=== PATIENT | female | born 1975 | race African-American/Black ===

== ENCOUNTER → 2016-08-22 | Outpatient (CLI) | payer OTHER ==
[~2016-08-22] MED LIST: FLEXERIL PO; HYDROCODON-ACE1 EAC7 PO; KETOPROFEN PO; MIDRIN CAPSULE1 CAP PO; VERAPAMIL HCL240 M1 PO; VICODIN 5/500 T1 TAB PO
--- NOTE | ~2016-08-22 | US6 ---
[facility] A Service of [facility] & [facility] RADIOLOGY TEXT RESULTS PATIENT: MARY JANE ESPINOZA LOCATION: [facility] : 73 UNIT #: [id number] AGE: [address]: BASIL IRIZARRY SEX: F ORDER DR: [id number] [facility] [address] [place], [place] [address] [id number] O MR#: [id number] Acc #: [id number] NAME: MARY JANE ESPINOZA : 1975 SEX: F STUDY DATE/TIME: 08/22/2016 14:14 UNIT: [facility] ROOM: STUDY DESCRIPTION: US Abdominal Limited Attending Physician: Chayito Sr Referring Physician: Chayito Sr Ordering Physician: Chayito Sr Primary Care Physician: Louann Benjamin M.D. MEDICAL IMAGING REPORT This report is preliminary unless electronic signature is present EXAM Gallbladder ultrasound, 08/22/16. HISTORY Abnormally elevated liver enzymes for the past 6 months. FINDINGS The liver demonstrates an increase in echotexture with attenuation of the ultrasound beam characteristic of fatty infiltration. No cystic or solid mass lesions were seen in the liver. The intra and extrahepatic bile ducts are not dilated. The gallbladder is normal with no evidence of cholelithiasis, wall thickening or pericholecystic fluid. The common duct measures 4 mm. The pancreas and right kidney are normal. IMPRESSION Fatty infiltration of the liver. Otherwise, negative right upper quadrant ultrasound. Dictated by... Mich Prater M.D. THIS IS AN ELECTRONICALLY VERIFIED REPORT Mich Prater M.D. at 08/23/2016 9:24 AM LEXII/anna TD: 08/22/2016 18:06 JOB #: [id number] MEDICAL IMAGING REPORT Page 1 of 1 COPY
--- NOTE | ~2016-08-22 | MY29 ---
[facility] A Service of [facility] RADIOLOGY TEXT RESULTS PATIENT: MARY JANE ESPINOZA LOCATION: [facility] : 73 UNIT #: [id number] AGE: [address]: BASIL IRIZARRY SEX: F ORDER DR: [id number] [facility] [address] [place], [place] [address] [id number] O MR#: [id number] Acc #: [id number] NAME: MARY JANE ESPINOZA : 1975 SEX: F STUDY DATE/TIME: 08/22/2016 14:40 UNIT: [facility] ROOM: STUDY DESCRIPTION: MY LUCINA SCREENING W/ CAD BILAT Attending Physician: Chayito Sr Referring Physician: Chayito Sr Ordering Physician: Chayito Sr Primary Care Physician: Louann Benjamin M.D. MEDICAL IMAGING REPORT This report is preliminary unless electronic signature is present EXAM Digital screening mammogram 08/22/2016 HISTORY 40-year-old woman baseline mammogram. No risk elevation. COMPARISON None. FINDINGS Digital imaging of each breast was completed utilizing screening protocol. Review includes FDA-approved CAD device. Breast parenchyma is predominantly fatty replaced. Subareolar duct prominence is noted in each breast. There is no suspicious breast mass. There are no microcalcifications and I see no architectural distortion. IMPRESSION Negative baseline mammogram. Annual screening recommended. Patients over the age of 40 are entered into a reminder system with target due date for the next mammogram. A result letter will also be sent to the patient. BIRADS: 1, negative. Dictated by... Rodney uKmar M.D. THIS IS AN ELECTRONICALLY VERIFIED REPORT Rodney Kumar M.D. at 08/23/2016 9:39 AM KENDALL/ricor [facility] A Service of [facility] RADIOLOGY TEXT RESULTS PATIENT: MARY JANE ESPINOZA LOCATION: [facility] : 73 UNIT #: [id number] AGE: [address]: BASIL IRIZARRY SEX: F ORDER DR: TD: 08/22/2016 18:39 JOB #: [id number] MEDICAL IMAGING REPORT Page 1 of 1 COPY
== END | disposition home or self-care (01) ==
LOC: CWCC 08-17 13:30
DX: Z12.31 Encounter for screening mammogram for malignant neoplasm of breast (principal); R74.8 Abnormal levels of other serum enzymes; K76.0 Fatty (change of) liver, not elsewhere classified
CPT/HCPCS: 76705; G0202